=== PATIENT | female | born 1965 | race Caucasian/White ===

== ENCOUNTER 2018-06-27 13:39 | Emergency (ER) | payer OTHER, MEDICAID ==
[~2018-06-27] VITALS: Ht 167.6 cm; Wt 113.4 kg
[2018-06-27 14:00] VITALS: BP 113/70
[2018-06-27 14:47] LABS: Urine WBC None Seen /hpf (0 - 5)
[2018-06-27 14:48] LABS: Basophils # (auto) 0 uL; Eosinophils # (auto) 0.2 uL; Eosinophils % (auto) 8.5 % (0.0-7.0); Hematocrit 37.7 % (36.0-46.0); Hemoglobin 12.2 g/dL (12.2-16.2); Lymphocytes # (auto) 0.7 uL; Mean Corpuscular Hemoglobin 28.5 pg (28.0-32.0); Mean Corpuscular Hgb Conc. 32.3 g/dL (32.0-36.0); Mean Corpuscular Volume 88.3 fL (80.0-100.0); Monocytes # (auto) 0.3 uL; Monocytes % (auto) 13.5 % (0.0-12.0); Neutrophils # (auto) 1.2 uL; Nucleated Red Blood Cells % 0.1 %; Platelet Count (auto) 166 10^3/uL (140-450); Red Blood Cells 4.27 10^6/uL (4.0-5.20); Red Cell Distribution Width 15.5 % (11.8-14.3); White Blood Cell 2.4 10^3/uL (4.4-10.8)
[2018-06-27 15:02] LABS: Albumin 3.2 g/dL (3.4-5.0); Calcium 7.8 mg/dL (8.5-10.1)
[2018-06-27 15:06] LABS: BUN/Creatinine Ratio 9.9; Bilirubin, Total 0.3 mg/dL (0.2-1.0)
[2018-06-27 15:14] LABS: Urine Bacteria NONE SEEN /hpf (None Seen); Urine Blood Negative /uL (Negative); Urine Specific Gravity 1.011 (1.001-1.035)
[2018-06-27] MEDS ORDERED: PANTOPRAZOLE 40 MG TAB PO ONE (16:45)
[2018-06-27] MEDS ORDERED: LACTULOSE 20Gm/30ML SOLN PO ONE (16:45)
== END 2018-06-27 17:25 | disposition home or self-care (01) ==
LOC: ER 13:39
DX: K59.00 Constipation, unspecified (principal); K21.9 Gastro-esophageal reflux disease without esophagitis; M19.90 Unspecified osteoarthritis, unspecified site; Z88.0 Allergy status to penicillin
CPT/HCPCS: 36415; 74176; 80053; 81001; 82150; 83690; 85025

== ENCOUNTER 2019-04-02 13:24 | Emergency (ER) | payer OTHER, MEDICAID ==
[~2019-04-02] VITALS: Ht 154.9 cm; Wt 88.5 kg
[2019-04-02 13:31] VITALS: BP 110/84
== END 2019-04-02 14:03 | disposition left against medical advice (07) ==
LOC: ER 13:24 → EDUNIT# 13:24 → EDBD 13:24 → ER 14:03
DX: M25.562 Pain in left knee (principal); M54.5 Low back pain; Z53.21 Procedure and treatment not carried out due to patient leaving prior to being seen by health care provider; V09.9XXA Pedestrian injured in unspecified transport accident, initial encounter; Y93.01 Activity, walking, marching and hiking; Y92.488 Other paved roadways as the place of occurrence of the external cause; Y99.8 Other external cause status